=== PATIENT | male | born 1990 | race Two or more races ===

== ENCOUNTER 2019-08-11 09:19 | Emergency (ER) | payer BC ==
[~2019-08-11] VITALS: Ht 180.3 cm; Wt 99.8 kg
[2019-08-11 09:54] VITALS: BP 146/91
== END 2019-08-11 11:36 | disposition home or self-care (01) ==
LOC: ER 09:19
DX: S29.011A Strain of muscle and tendon of front wall of thorax, initial encounter (principal)
CPT/HCPCS: 71101

== ENCOUNTER 2021-03-01 06:32 | Inpatient (IN) | payer BC, MEDICAID ==
[~2021-03-01] VITALS: Ht 177.8 cm; Wt 109.5 kg
[2021-03-01] MEDS ORDERED: SODIUM CHLORIDE 0.9% 1,000 ML IV ONE (07:00)
[2021-03-01] MEDS ORDERED: ONDANSETRON HCL 4 MG/2 ML VIAL IV ONE (07:00)
[2021-03-01] MEDS ORDERED: NALOXONE HCL 1MG/ML 2ML SYRINGE IV ONE (07:15)
[2021-03-01 07:37] LABS: Basophils # (auto) 0 10 ^3/uL (0-0.2); Basophils % (auto) 0.1 % (0.0-2.0); Eosinophils # (auto) 0 10 ^3/uL (0-0.8); Hematocrit 45.6 % (41.0-53.0); Hemoglobin 16.2 g/dL (13.5-17.5); Lymphocytes % (auto) 5.9 % (10.0-50.0); Mean Corpuscular Hgb Conc. 35.5 g/dL (32.0-36.0); Mean Corpuscular Volume 92.9 fL (80.0-100.0); Monocytes # (auto) 0.4 10 ^3/uL (0-1.3); Monocytes % (auto) 2.2 % (0.0-12.0); Neutrophils # (auto) 15.6 10 ^3/uL (1.6-8.6); Neutrophils % (auto) 91.8 % (37.0-80.0); Nucleated Red Blood Cells % 0.6 %; Platelet Count (auto) 386 10^3/uL (140-450); Red Blood Cells 4.91 10^6/uL (4.5-5.90); Red Cell Distribution Width 12.7 % (11.8-14.3)
[2021-03-01 07:54] LABS: Salicylate < 1.7 mg/dL (2.8-20.0)
[2021-03-01 07:55] LABS: Acetaminophen < 2.0 ug/mL (10-30); Albumin 3.9 g/dL (3.4-5.0); Calcium 9.8 mg/dL (8.5-10.1)
[2021-03-01 07:58] LABS: BUN/Creatinine Ratio 13.9; Bilirubin, Total 0.7 mg/dL (0.2-1.0); Total Protein 7.5 g/dL (6.4-8.2)
[2021-03-01] MEDS ORDERED: DexAMETHasone SOD PHOS 10MG/1ML VIAL INJ IV ONE (09:45)
[2021-03-01] MEDS ORDERED: DOXYCYCLINE 100MG/250ML 250 ML IV ONE (09:45)
[2021-03-01 09:52] LABS: Urine Bacteria NONE SEEN /hpf (None Seen); Urine Blood Negative /uL (Negative); Urine Mucus FEW (None Seen); Urine Specific Gravity 1.007 (1.001-1.035); Urine WBC 2 /hpf (0 - 3)
[2021-03-01 10:06] LABS: INR 1.03 (0.9-1.15); Partial Thromboplastin Time 25.1 sec (23.0-31.2)
[2021-03-01 10:17] LABS: Amphetamine Screen, Urine NEGATIVE (NEGATIVE); Barbiturate Scree,Urine NEGATIVE (NEGATIVE); Benzodiazephine Screen, Urine POSITIVE (NEGATIVE); Cannabinoid Screen, Urine NEGATIVE (NEGATIVE); Cocaine Screen, Urine NEGATIVE (NEGATIVE); Opiate Scree,Urine NEGATIVE (NEGATIVE); Phencyclidine Screen, Urine NEGATIVE (NEGATIVE)
[2021-03-01] MEDS ORDERED: IOHEXOL 350 MG/ML 100ML IJ ONE (11:01)
[2021-03-01] MEDS ORDERED: NITROGLYCERIN 0.4 MG SL TAB SL PRN ×3 (12:00→14:15)
[2021-03-01] MEDS ORDERED: MORPHINE SULF INJ 2 MG/ML SYRINGE 1ML IV PRN ×4 (12:00→14:15)
[2021-03-01] MEDS ORDERED: ALUM & MAG HYDROX-SIMETH LIQ(MAALOX) 30 ML PO ONE (14:15)
[2021-03-01] MEDS ORDERED: THIAMINE 100mg/ml INJ (200mg/2ml VIAL) IV ONE (14:15)
[2021-03-01] MEDS ORDERED: MULTIPLE VITAMINS W/ MINERALS TAB PO ONE (14:15)
[2021-03-01] MEDS ORDERED: CLINDAMYCIN 600MG IV 50 ML IV ONE (14:15)
[2021-03-01] MEDS ORDERED: LACTATED RINGER'S 1,000 ML IV ONE (14:15)
[2021-03-01] MEDS ORDERED: FOLIC ACID 1 MG TAB PO ONE (14:15)
[2021-03-01] MEDS ORDERED: ONDANSETRON HCL 4 MG/2 ML VIAL IV PRN (14:15)
[2021-03-01] MEDS ORDERED: LORazepam 2MG/ML-1ML VIAL IV PRN (14:15)
[2021-03-01] MEDS: SODIUM CHLORIDE 0.9% 1,000 ML IV SCH (15:00)
[2021-03-01] MEDS ORDERED: AZTREONAM 1GM INJ 1 GM in D5W 5% 50 ML IV ONE (16:00)
[2021-03-01 17:00] VITALS: BP 106/60
[2021-03-01] MEDS: FUROSEMIDE 20 MG/2 ML VIAL IV SCH (18:12)
[2021-03-01] MEDS: FAMOTIDINE (10MG/ML) 2ML VL IV SCH (21:17)
[2021-03-01] MEDS: CLINDAMYCIN 600MG IV 50 ML IV SCH (21:17)
[2021-03-01 22:00] VITALS: BP 107/64
[2021-03-02] MEDS ORDERED: AZTREONAM 1 GM INJ VIAL ONE (00:56)
[2021-03-02] MEDS: AZTREONAM 1GM INJ 1 GM in D5W 5% 50 ML IV SCH ×3 (01:20→15:41)
[2021-03-02] MEDS: SODIUM CHLORIDE 0.9% 1,000 ML IV SCH ×2 (03:35→17:25)
[2021-03-02 05:15] VITALS: BP 112/57
[2021-03-02] MEDS: CLINDAMYCIN 600MG IV 50 ML IV SCH ×2 (05:45→14:10)
[2021-03-02] MEDS: FUROSEMIDE 20 MG/2 ML VIAL IV SCH ×2 (05:45→18:06)
[2021-03-02 06:48] LABS: Basophils # (auto) 0.2 10 ^3/uL (0-0.2); Basophils % (auto) 2.2 % (0.0-2.0); Eosinophils # (auto) 0 10 ^3/uL (0-0.8); Eosinophils % (auto) 0.5 % (0.0-7.0); Hematocrit 43.2 % (41.0-53.0); Hemoglobin 15.2 g/dL (13.5-17.5); Lymphocytes # (auto) 1.2 10 ^3/uL (0.4-5.4); Lymphocytes % (auto) 12.4 % (10.0-50.0); Mean Corpuscular Hemoglobin 32.7 pg (28.0-32.0); Mean Corpuscular Hgb Conc. 35.2 g/dL (32.0-36.0); Mean Corpuscular Volume 92.7 fL (80.0-100.0); Monocytes # (auto) 0.6 10 ^3/uL (0-1.3); Monocytes % (auto) 5.8 % (0.0-12.0); Neutrophils # (auto) 7.5 10 ^3/uL (1.6-8.6); Neutrophils % (auto) 79.1 % (37.0-80.0); Nucleated Red Blood Cells % 0.1 %; Platelet Count (auto) 342 10^3/uL (140-450); Red Blood Cells 4.67 10^6/uL (4.5-5.90); Red Cell Distribution Width 12.9 % (11.8-14.3); White Blood Cell 9.5 10^3/uL (4.4-10.8)
[2021-03-02 07:05] LABS: Albumin 3.5 g/dL (3.4-5.0); Anion Gap 8 (5-15); Blood Urea Nitrogen 12 mg/dL (7-18); Calcium 9.5 mg/dL (8.5-10.1); Carbon Dioxide 26 mmol/L (21-32); Chloride 108 mmol/L (98-107); Glucose 126 mg/dL (74-106); Magnesium 2.9 mg/dL (1.6-2.6); Potassium 3.6 mmol/L (3.5-5.1); Sodium 142 mmol/L (136-145)
[2021-03-02 07:11] LABS: Alanine Aminotransferase 111 U/L (16-61); Alkaline Phosphatase 76 U/L (45-117); Aspartate Aminotransferase 58 U/L (15-37); BUN/Creatinine Ratio 15.8; Bilirubin, Total 0.7 mg/dL (0.2-1.0); Creatine Kinase IFCC 94 U/L (39-308); GFR African American 156 mL/min; GFR Non-African American 129 mL/min; Phosphorus 3.3 mg/dL (2.5-4.90); Total Protein 6.8 g/dL (6.4-8.2)
[2021-03-02 07:13] LABS: INR 1.03 (0.9-1.15); Partial Thromboplastin Time 25.1 sec (23.0-31.2)
[2021-03-02 07:23] LABS: % Iron Saturation 33.9 % (20-55)
[2021-03-02] MEDS: THIAMINE HCL 100 MG TAB PO SCH (08:25)
[2021-03-02] MEDS: DOCUSATE SOD 100 MG CAP PO SCH (08:25)
[2021-03-02] MEDS: FAMOTIDINE (10MG/ML) 2ML VL IV SCH ×2 (08:26→21:18)
[2021-03-02] MEDS: FOLIC ACID 1 MG TAB PO SCH (08:26)
[2021-03-02] MEDS: ENOXAPARIN SOD 40 MG/0.4 ML SYRINGE SC SCH (08:26)
[2021-03-02 09:00] VITALS: BP 144/88
[2021-03-02] MEDS: MULTIPLE VITAMINS W/ MINERALS TAB PO SCH (10:22)
[2021-03-02] MEDS: LORazepam 0.5 MG TAB PO PRN ×2 (11:00→22:43)
[2021-03-02 13:00] VITALS: BP 145/77
[2021-03-02 13:28] LABS: Hepatitis B Surface Antigen Negative (Negative); Hepatitis C Antibody Negative (Negative)
[2021-03-02 17:00] VITALS: BP 146/73
[2021-03-02] MEDS: HYDROcodone-ACET 5/325MG TAB PO PRN (21:18)
[2021-03-02 22:00] VITALS: BP 146/84
[2021-03-03] MEDS: HYDROcodone-ACET 5/325MG TAB PO PRN (03:20)
[2021-03-03 05:00] VITALS: BP 137/82
[2021-03-03 08:00] VITALS: BP 144/103
[2021-03-03 09:00] VITALS: BP 144/103
[2021-03-03] MEDS: FAMOTIDINE (10MG/ML) 2ML VL IV SCH (10:00)
[2021-03-03] MEDS: FOLIC ACID 1 MG TAB PO SCH (10:00)
[2021-03-03] MEDS ORDERED: levoFLOXacin 250 MG TAB PO SCH (10:00)
[2021-03-03] MEDS: DOCUSATE SOD 100 MG CAP PO SCH (10:01)
[2021-03-03] MEDS: ENOXAPARIN SOD 40 MG/0.4 ML SYRINGE SC SCH (10:02)
[2021-03-03] MEDS: MULTIPLE VITAMINS W/ MINERALS TAB PO SCH (10:04)
[2021-03-03] MEDS: THIAMINE HCL 100 MG TAB PO SCH (10:05)
[2021-03-03 13:00] VITALS: BP 145/84
== END 2021-03-03 16:23 | disposition home or self-care (01) | DRG 812 ==
LOC: EDBD 06:32 → ER 06:32 → TELE 12:01 → TELE-WESTW 16:25
PROVIDERS: ADMIT Hospitalist; ATTEND Internal Medicine Nephrology
DX: T40.2X1A Poisoning by other opioids, accidental (unintentional), initial encounter (principal); J96.01 Acute respiratory failure with hypoxia; J15.6 Pneumonia due to other Gram-negative bacteria; N17.0 Acute kidney failure with tubular necrosis; G92 Toxic encephalopathy; E88.81 Metabolic syndrome and other insulin resistance; E86.0 Dehydration; E66.01 Morbid (severe) obesity due to excess calories; K76.0 Fatty (change of) liver, not elsewhere classified; Z20.822 Contact with and (suspected) exposure to COVID-19; K21.9 Gastro-esophageal reflux disease without esophagitis; K29.70 Gastritis, unspecified, without bleeding; G89.4 Chronic pain syndrome; R73.9 Hyperglycemia, unspecified; B17.9 Acute viral hepatitis, unspecified; E66.9 Obesity, unspecified; E78.5 Hyperlipidemia, unspecified; F11.20 Opioid dependence, uncomplicated; F13.10 Sedative, hypnotic or anxiolytic abuse, uncomplicated; I10 Essential (primary) hypertension; R55 Syncope and collapse; M25.512 Pain in left shoulder; F19.10 Other psychoactive substance abuse, uncomplicated; Z68.34 Body mass index [BMI] 34.0-34.9, adult; Z88.0 Allergy status to penicillin; Z86.16 Personal history of COVID-19; Z87.01 Personal history of pneumonia (recurrent); Y92.89 Other specified places as the place of occurrence of the external cause
CPT/HCPCS: 36415; 36600; 70450; 71045; 71275; 76705; 80053; 80307; 80329; 81001; 82306; 82550; 82728; 82805; 83036; 83540; 83550; 83735; 83880; 84100; 84443; 84484; 85025; 85379; 85610; 85730; 86803; 87040; 87340; 87426; 93005; 93306; 96361; 96365; 96375; G0378; J1100; J2405; J3490; J7060

== ENCOUNTER 2022-04-26 11:57 | Inpatient (IN) | payer OTHER, MEDICAID ==
[~2022-04-26] VITALS: Ht 180.3 cm; Wt 95.6 kg
[2022-04-26] MEDS ORDERED: SODIUM CHLORIDE 0.9% 2,000 ML IV ONE (12:30)
[2022-04-26 13:55] LABS: Hematocrit 52.6 % (41.0-53.0); Hemoglobin 17.3 g/dL (13.5-17.5); Mean Corpuscular Hemoglobin 32.3 pg (28.0-32.0); Mean Corpuscular Volume 97.8 fL (80.0-100.0); Red Blood Cells 5.37 10^6/uL (4.5-5.90); Red Cell Distribution Width 12.9 % (11.8-14.3); White Blood Cell 18.5 10^3/uL (4.4-10.8)
[2022-04-26 13:57] LABS: Basophils % (manual) 0 (0.0-2.0); Blast Cells 0; Metamyelocytes % 0; Myelocytes % 0; Promyelocytes % 0; Reactive Lymphocytes 0
[2022-04-26] MEDS ORDERED: LORazepam 2MG/ML-1ML VIAL IV ONE (14:00)
[2022-04-26 14:12] LABS: Band Neutrophils % (manual) 4; Eosinophils % (manual) 1 (0-7); Lymphocytes % (manual) 1 (10.0-50.0); Monocytes % (manual) 2 (0-12)
[2022-04-26] MEDS ORDERED: SODIUM CHLORIDE 0.9% 1,000 ML IV ONE ×2 (14:15)
[2022-04-26 14:42] LABS: Urine Bacteria NONE SEEN /hpf (None Seen); Urine Blood TRACE /uL (Negative); Urine Hyaline Cast FEW /lpf (0 - 2); Urine Mucus FEW (None Seen); Urine Specific Gravity 1.026 (1.001-1.035); Urine WBC 2 /hpf (0 - 3)
[2022-04-26 14:49] LABS: Amphetamine Screen, Urine NEGATIVE (NEGATIVE); Barbiturate Scree,Urine NEGATIVE (NEGATIVE); Benzodiazephine Screen, Urine NEGATIVE (NEGATIVE); Cannabinoid Screen, Urine NEGATIVE (NEGATIVE); Cocaine Screen, Urine NEGATIVE (NEGATIVE); Opiate Scree,Urine NEGATIVE (NEGATIVE); Phencyclidine Screen, Urine NEGATIVE (NEGATIVE)
[2022-04-26] MEDS ORDERED: ONDANSETRON HCL 4 MG/2 ML VIAL IV ONE (15:45)
[2022-04-26 17:06] LABS: Chloride 106 mmol/L (98-107); Sodium 136 mmol/L (136-145)
[2022-04-26 17:08] LABS: Alanine Aminotransferase 148 U/L (16-61); Alkaline Phosphatase 116 U/L (45-117); Anion Gap 24 (5-15); Aspartate Aminotransferase 60 U/L (15-37); BUN/Creatinine Ratio 15.9; Bilirubin, Total 0.7 mg/dL (0.2-1.0); Blood Urea Nitrogen 25 mg/dL (7-18); GFR African American 67 mL/min; GFR Non-African American 55 mL/min
[2022-04-26 17:09] LABS: Albumin 3.9 g/dL (3.4-5.0); Potassium 5.9 mmol/L (3.5-5.1)
[2022-04-26 17:10] LABS: Blood Alcohol < 3.0 mg/dL (0-5); Carbon Dioxide 6 mmol/L (21-32); Glucose 533 mg/dL (74-106)
[2022-04-26] MEDS ORDERED: DEXTROSE (50%) 50ML SYRG IV PRN (17:30)
[2022-04-26] MEDS ORDERED: INSULIN LANTUS (GLARGINE) 1 /0.01ml (100units/ml) SC ONE (17:30)
[2022-04-26] MEDS: SODIUM CHLORIDE 0.9% 1,000 ML IV SCH ×3 (17:46→22:49)
[2022-04-26] MEDS: ACCU-CHEK COMFORT CURVE STRIP VI SCH ×4 (18:09→22:36)
[2022-04-26] MEDS: InsuLIN R (HUMAN) 100 UNITS in SODIUM CHL 0.9% 99 ML IV SCH (18:16)
[2022-04-26] MEDS ORDERED: ONDANSETRON HCL 4 MG/2 ML VIAL IV PRN (21:30)
[2022-04-26] MEDS ORDERED: hydrALAZINE HCL 20 MG/ML VL IV PRN (21:30)
[2022-04-26] MEDS ORDERED: levoFLOXacin 500MG 100 ML IV ONE (21:30)
[2022-04-26] MEDS ORDERED: SODIUM CHLORIDE 0.9% 1,000 ML IV SCH ×2 (21:30)
[2022-04-26] MEDS ORDERED: DOCUSATE SOD 100 MG CAP PO PRN (21:30)
[2022-04-26 21:43] LABS: Basophils # (auto) 0 10 ^3/uL (0-0.2); Basophils % (auto) 0.1 % (0.0-2.0); Eosinophils # (auto) 0 10 ^3/uL (0-0.8); Hematocrit 51.2 % (41.0-53.0); Hemoglobin 17.2 g/dL (13.5-17.5); Lymphocytes # (auto) 1.2 10 ^3/uL (0.4-5.4); Lymphocytes % (auto) 5.4 % (10.0-50.0); Mean Corpuscular Hemoglobin 32.8 pg (28.0-32.0); Mean Corpuscular Hgb Conc. 33.6 g/dL (32.0-36.0); Mean Corpuscular Volume 97.5 fL (80.0-100.0); Monocytes # (auto) 1.3 10 ^3/uL (0-1.3); Monocytes % (auto) 5.8 % (0.0-12.0); Neutrophils # (auto) 19.6 10 ^3/uL (1.6-8.6); Neutrophils % (auto) 88.7 % (37.0-80.0); Nucleated Red Blood Cells % 0.1 %; Red Blood Cells 5.25 10^6/uL (4.5-5.90); Red Cell Distribution Width 12.7 % (11.8-14.3); White Blood Cell 22.1 10^3/uL (4.4-10.8)
[2022-04-26] MEDS: METOPROLOL TARTRATE 25 MG TAB PO SCH (22:37)
[2022-04-26] MEDS: HYDROcodone-ACET 5/325MG TAB PO PRN (22:38)
[2022-04-26] MEDS: HEPARIN SODIUM (PORCINE) 5000 UNITS/ML 1ML VIAL SC SCH (22:48)
[2022-04-26 22:49] LABS: Alanine Aminotransferase 138 U/L (16-61); Alkaline Phosphatase 111 U/L (45-117); Anion Gap 20 (5-15); Aspartate Aminotransferase 56 U/L (15-37); BUN/Creatinine Ratio 16.8; Bilirubin, Total 0.6 mg/dL (0.2-1.0); Blood Urea Nitrogen 24 mg/dL (7-18); Calcium 8.1 mg/dL (8.5-10.1); Carbon Dioxide 5 mmol/L (21-32); Chloride 112 mmol/L (98-107); GFR African American 75 mL/min; GFR Non-African American 62 mL/min; Glucose 345 mg/dL (74-106); Phosphorus 2.5 mg/dL (2.5-4.90); Potassium 5.5 mmol/L (3.5-5.1); Sodium 137 mmol/L (136-145)
[2022-04-26 22:50] LABS: Albumin 3.6 g/dL (3.4-5.0); Magnesium 3.1 mg/dL (1.6-2.6); Total Protein 7.8 g/dL (6.4-8.2)
[2022-04-26] MEDS ORDERED: MORPHINE SULFATE INJ 2 MG/ml SYRG IV PRN (23:30)
[2022-04-26] MEDS ORDERED: NITROGLYCERIN 0.4 MG SL TAB SL PRN (23:30)
[2022-04-27] MEDS: ACCU-CHEK COMFORT CURVE STRIP VI SCH ×16 (00:08→23:45)
[2022-04-27] MEDS: SODIUM CHLORIDE 0.9% 1,000 ML IV SCH (06:10)
[2022-04-27 08:21] LABS: Basophils # (auto) 0.1 10 ^3/uL (0-0.2); Basophils % (auto) 0.5 % (0.0-2.0); Eosinophils # (auto) 0 10 ^3/uL (0-0.8); Eosinophils % (auto) 0.1 % (0.0-7.0); Hemoglobin 14.9 g/dL (13.5-17.5); Lymphocytes # (auto) 1.1 10 ^3/uL (0.4-5.4); Lymphocytes % (auto) 8.6 % (10.0-50.0); Mean Corpuscular Hemoglobin 32.6 pg (28.0-32.0); Mean Corpuscular Hgb Conc. 33.9 g/dL (32.0-36.0); Mean Corpuscular Volume 96.3 fL (80.0-100.0); Monocytes # (auto) 0.9 10 ^3/uL (0-1.3); Neutrophils # (auto) 10.9 10 ^3/uL (1.6-8.6); Neutrophils % (auto) 83.8 % (37.0-80.0); Red Blood Cells 4.57 10^6/uL (4.5-5.90); Red Cell Distribution Width 12.7 % (11.8-14.3)
[2022-04-27] MEDS: HYDROcodone-ACET 5/325MG TAB PO PRN ×2 (08:33→16:27)
[2022-04-27 08:38] LABS: Albumin 3.1 g/dL (3.4-5.0); Calcium 8.2 mg/dL (8.5-10.1); Potassium 4.2 mmol/L (3.5-5.1)
[2022-04-27 08:52] LABS: BUN/Creatinine Ratio 14.5; Bilirubin, Total 0.7 mg/dL (0.2-1.0); Total Protein 6.3 g/dL (6.4-8.2)
[2022-04-27] MEDS: amLODIPine BESYLATE 5 MG TAB PO SCH (10:00)
[2022-04-27] MEDS: METOPROLOL TARTRATE 25 MG TAB PO SCH ×2 (10:00→23:44)
[2022-04-27] MEDS: HEPARIN SODIUM (PORCINE) 5000 UNITS/ML 1ML VIAL SC SCH (10:21)
[2022-04-27] MEDS: levoFLOXacin 500MG 100 ML IV SCH (10:22)
[2022-04-27] MEDS: INSULIN LANTUS (GLARGINE) 1 /0.01ml (100units/ml) SC SCH (10:36)
[2022-04-27] MEDS: SODIUM BICARBONATE 50ML VIAL 50 ML in SOD CHL 0.45% 1,000 ML IV SCH (11:08)
[2022-04-27 15:41] LABS: BUN/Creatinine Ratio 15.2; Calcium 8.5 mg/dL (8.5-10.1); Magnesium 2.7 mg/dL (1.6-2.6); Potassium 3.7 mmol/L (3.5-5.1)
[2022-04-27] MEDS: InsuLIN R (HUMAN) 100 UNITS in SODIUM CHL 0.9% 99 ML IV SCH ×2 (17:29→21:30)
[2022-04-27] MEDS ORDERED: ERGOCALCIFEROL 50,000 UNIT(1.25MG) CAP PO SCH (19:15)
[2022-04-27] MEDS ORDERED: POTASSIUM PHOSPHATE 26.4 MEQ in SODIUM CHL 0.9% 100 ML IV ONE (19:15)
[2022-04-28] MEDS: HEPARIN SODIUM (PORCINE) 5000 UNITS/ML 1ML VIAL SC SCH ×3 (00:21→22:48)
[2022-04-28] MEDS: ACCU-CHEK COMFORT CURVE STRIP VI SCH ×11 (00:28→22:00)
[2022-04-28] MEDS: HYDROcodone-ACET 5/325MG TAB PO PRN ×3 (00:47→23:57)
[2022-04-28] MEDS ORDERED: InsuLIN R (HUMAN) 100 UNITS in SODIUM CHL 0.9% 99 ML IV SCH (04:30)
[2022-04-28 06:02] LABS: Calcium 7.8 mg/dL (8.5-10.1); Magnesium 2.8 mg/dL (1.6-2.6); Potassium 5.4 mmol/L (3.5-5.1)
[2022-04-28 06:05] LABS: BUN/Creatinine Ratio 15.1; Phosphorus 6.4 mg/dL (2.5-4.90)
[2022-04-28 06:08] LABS: Albumin 2.6 g/dL (3.4-5.0); Calcium 7.7 mg/dL (8.5-10.1); Potassium 5.4 mmol/L (3.5-5.1)
[2022-04-28 06:11] LABS: BUN/Creatinine Ratio 15.3; Bilirubin, Total 0.5 mg/dL (0.2-1.0); Total Protein 5.4 g/dL (6.4-8.2)
[2022-04-28] MEDS: ACETAMINOPHEN 325 MG TAB PO PRN ×2 (07:50→18:33)
[2022-04-28 08:46] LABS: Urine Bacteria FEW /hpf (None Seen); Urine Blood Negative /uL (Negative); Urine Specific Gravity 1.018 (1.001-1.035); Urine WBC 1 /hpf (0 - 3)
[2022-04-28 08:51] LABS: Basophils # (auto) 0.1 10 ^3/uL (0-0.2); Basophils % (auto) 0.9 % (0.0-2.0); Eosinophils # (auto) 0 10 ^3/uL (0-0.8); Eosinophils % (auto) 0.3 % (0.0-7.0); Hematocrit 37.4 % (41.0-53.0); Hemoglobin 13.3 g/dL (13.5-17.5); Lymphocytes % (auto) 18.5 % (10.0-50.0); Mean Corpuscular Hemoglobin 32.7 pg (28.0-32.0); Mean Corpuscular Hgb Conc. 35.7 g/dL (32.0-36.0); Mean Corpuscular Volume 91.6 fL (80.0-100.0); Monocytes # (auto) 0.4 10 ^3/uL (0-1.3); Monocytes % (auto) 7.4 % (0.0-12.0); Neutrophils % (auto) 72.9 % (37.0-80.0); Nucleated Red Blood Cells % 0.2 %; Red Blood Cells 4.08 10^6/uL (4.5-5.90); Red Cell Distribution Width 12.5 % (11.8-14.3); White Blood Cell 5.5 10^3/uL (4.4-10.8)
[2022-04-28] MEDS: SODIUM BICARBONATE 50ML VIAL 50 ML in SOD CHL 0.45% 1,000 ML IV SCH (09:59)
[2022-04-28] MEDS: METOPROLOL TARTRATE 25 MG TAB PO SCH ×2 (10:25→22:41)
[2022-04-28] MEDS: amLODIPine BESYLATE 5 MG TAB PO SCH (10:26)
[2022-04-28] MEDS: INSULIN LANTUS (GLARGINE) 1 /0.01ml (100units/ml) SC SCH (10:26)
[2022-04-28] MEDS: levoFLOXacin 500MG 100 ML IV SCH (10:40)
[2022-04-28] MEDS ORDERED: DEXTROSE (50%) 50ML SYRG IV PRN (11:15)
[2022-04-28] MEDS: InsuLIN REG 1unit/0.01ml Soln (100units/ml) SC SCH ×2 (13:02→17:00)
[2022-04-28 14:45] VITALS: BP 116/68
[2022-04-28 16:30] LABS: Calcium 8.7 mg/dL (8.5-10.1); Potassium 3.9 mmol/L (3.5-5.1)
[2022-04-28 17:00] VITALS: BP 105/66
[2022-04-28 20:00] VITALS: BP 119/71
[2022-04-28 22:00] VITALS: BP 119/71
[2022-04-28] MEDS ORDERED: InsuLIN REG 1unit/0.01ml Soln (100units/ml) SC SCH (22:00)
[2022-04-29] MEDS: SODIUM BICARBONATE 50ML VIAL 50 ML in SOD CHL 0.45% 1,000 ML IV SCH (04:34)
[2022-04-29 05:37] VITALS: BP 120/74
[2022-04-29 06:12] LABS: Basophils # (auto) 0 10 ^3/uL (0-0.2); Basophils % (auto) 0.5 % (0.0-2.0); Eosinophils # (auto) 0 10 ^3/uL (0-0.8); Eosinophils % (auto) 0.3 % (0.0-7.0); Hematocrit 39.2 % (41.0-53.0); Hemoglobin 14.3 g/dL (13.5-17.5); Lymphocytes # (auto) 1.5 10 ^3/uL (0.4-5.4); Lymphocytes % (auto) 32.5 % (10.0-50.0); Mean Corpuscular Hemoglobin 32.9 pg (28.0-32.0); Mean Corpuscular Hgb Conc. 36.4 g/dL (32.0-36.0); Mean Corpuscular Volume 90.5 fL (80.0-100.0); Monocytes # (auto) 0.4 10 ^3/uL (0-1.3); Monocytes % (auto) 8.5 % (0.0-12.0); Neutrophils # (auto) 2.7 10 ^3/uL (1.6-8.6); Neutrophils % (auto) 58.2 % (37.0-80.0); Nucleated Red Blood Cells % 0.2 %; Red Blood Cells 4.34 10^6/uL (4.5-5.90); Red Cell Distribution Width 12.7 % (11.8-14.3); White Blood Cell 4.7 10^3/uL (4.4-10.8)
[2022-04-29 06:19] LABS: BUN/Creatinine Ratio 10.3; Calcium 8.7 mg/dL (8.5-10.1); Magnesium 2.7 mg/dL (1.6-2.6); Phosphorus 1.8 mg/dL (2.5-4.90)
[2022-04-29] MEDS: ACCU-CHEK COMFORT CURVE STRIP VI SCH ×3 (06:22→18:06)
[2022-04-29] MEDS: InsuLIN REG 1unit/0.01ml Soln (100units/ml) SC SCH ×3 (06:24→18:08)
[2022-04-29 06:47] LABS: Potassium 2.7 mmol/L (3.5-5.1)
[2022-04-29 08:00] VITALS: BP 114/75
[2022-04-29 09:00] VITALS: BP 112/77
[2022-04-29] MEDS: METOPROLOL TARTRATE 25 MG TAB PO SCH (09:04)
[2022-04-29] MEDS: levoFLOXacin 500MG 100 ML IV SCH (09:04)
[2022-04-29] MEDS: amLODIPine BESYLATE 5 MG TAB PO SCH (09:05)
[2022-04-29] MEDS: HEPARIN SODIUM (PORCINE) 5000 UNITS/ML 1ML VIAL SC SCH (09:06)
[2022-04-29] MEDS: INSULIN LANTUS (GLARGINE) 1 /0.01ml (100units/ml) SC SCH (09:06)
[2022-04-29] MEDS: HYDROcodone-ACET 5/325MG TAB PO PRN (11:35)
[2022-04-29] MEDS ORDERED: POTASSIUM PHOSPHATE 26.4 MEQ in SODIUM CHL 0.9% 100 ML IV ONE (12:45)
[2022-04-29] MEDS ORDERED: POTASSIUM CHL 20 Meq TABLET PO ONE (12:45)
[2022-04-29 13:00] VITALS: BP 136/69
[2022-04-29] MEDS ORDERED: LANC-347 XX (13:43)
[2022-04-29] MEDS ORDERED: BLOO-89 XX (13:43)
[2022-04-29] MEDS ORDERED: INSU1INJ26 SC (13:43)
[2022-04-29] MEDS ORDERED: ERGO1CAP23 PO (13:43)
[2022-04-29] MEDS ORDERED: BLOO-156 XX (13:43)
[2022-04-29] MEDS ORDERED: LISI-716 PO (13:43)
[2022-04-29] MEDS ORDERED: ATOR20TA PO (13:43)
[2022-04-29] MEDS ORDERED: BLOO1KIT60 XX (13:43)
[2022-04-29 14:21] VITALS: BP 112/77
[2022-04-29 17:00] VITALS: BP 119/75
[2022-04-29] MEDS: ACETAMINOPHEN 325 MG TAB PO PRN (19:35)
== END 2022-04-29 20:42 | disposition home or self-care (01) | DRG 638 ==
LOC: EDBD 11:57 → ER 11:57 → TELE 23:26 → TELE-EAST 04-28 14:43
PROVIDERS: ADMIT Nurse Practitioner Family; ATTEND Internal Medicine
DX: E11.10 Type 2 diabetes mellitus with ketoacidosis without coma (principal); R65.10 Systemic inflammatory response syndrome (SIRS) of non-infectious origin without acute organ dysfunction; D72.829 Elevated white blood cell count, unspecified; E87.5 Hyperkalemia; E55.9 Vitamin D deficiency, unspecified; E78.5 Hyperlipidemia, unspecified; I10 Essential (primary) hypertension; Z20.822 Contact with and (suspected) exposure to COVID-19; Z83.3 Family history of diabetes mellitus
CPT/HCPCS: 36415; 36600; 80048; 80053; 80061; 80307; 80320; 81001; 82010; 82306; 82805; 82962; 83036; 83735; 83930; 84100; 84443; 85007; 85025; 85027; 87040; 96361; 96374; 96375; 99291; G0378; J1815; J1956; J2405

== ENCOUNTER 2023-09-01 17:15 | Emergency (ER) | payer OTHER, MEDICAID ==
[~2023-09-01] VITALS: Ht 177.8 cm; Wt 89.3 kg
[~2023-09-01 17:15] MED LIST: ATOR20TA PO; BLOO-156 XX; BLOO-89 XX; BLOO1KIT60 XX; ERGO1CAP23 PO; INSU1INJ26 SC; LANC-347 XX; LISI10TA34 PO
[2023-09-01 17:43] VITALS: PULSE 84; RESP 16; O2SAT 97
[2023-09-01] MEDS ORDERED: KETAMINE 50mg/ML 10ml Vial (500mg/10ml) IV ONE (18:15)
[2023-09-01] MEDS ORDERED: PROPOFOL 10 MG/ML 20 ML IV ONE (18:15)
[2023-09-01] MEDS ORDERED: SODIUM CHLORIDE 0.9% 1,000 ML IV ONE (18:30)
[2023-09-01] MEDS ORDERED: NAP500T PO (19:14)
[2023-09-01 19:26] VITALS: BP 141/85; PULSE 77; RESP 19; TEMP 98.9; O2SAT 95
== END 2023-09-01 19:38 | disposition home or self-care (01) ==
LOC: ER 17:15
DX: S43.005A Unspecified dislocation of left shoulder joint, initial encounter (principal); Z88.0 Allergy status to penicillin; X58.XXXA Exposure to other specified factors, initial encounter; Y93.89 Activity, other specified; Y92.89 Other specified places as the place of occurrence of the external cause; Y99.8 Other external cause status
CPT/HCPCS: 23650; 73020; 73030; 96360; 99285; J2704; J7030

== ENCOUNTER 2024-10-17 21:02 | Emergency (ER) | payer OTHER, MEDICAID ==
[~2024-10-17] VITALS: Ht 180.3 cm; Wt 81.9 kg
[~2024-10-17 21:02] MED LIST changes: +NAP500T PO
--- NOTE | 2024-10-17 21:29 | ED.PDOC ---
GI ASSESSMENT HPI Comments 34-year-old male who came to ER for abdominal pain. Patient denies any medical problems, denies any history of abdominal surgeries. States for the past 8 days he has been having intermittent episodes of right lower quadrant abdominal pain also nausea and vomiting. Last bowel movement was this morning. Denies any urinary symptoms. Chief Complaint: Abdominal pain Time Seen by MD: 21:29 Primary Care Provider: DENIES Reviewed Notes: Nurses Notes Allergies: Coded Allergies: Penicillins (Verified Allergy, Unknown, 08/11/19) Home Meds Active Scripts Naproxen (NAPROSYN TABLET) 500 Mg Tb, 1 TAB PO BID PRN, #30 TAB 1 Refill Prov:ALIRIO PICKARD MD 09/01/23 Lancets (Freestyle Lancets) Lancets Mis, APPLIC XX ACHS, #90 Prov:ALEKSEY PARK MD 04/29/22 Blood Glucose Monitoring Suppl (D-Care Glucometer Kit/Glu W/Device) 1 Kit Kit, KIT XX ACHS, #90 Prov:ALEKSEY PARK MD 04/29/22 Blood Pressure Monitoring (BLOOD PRESSURE MONITOR/BA) Monitor Mis, APPLIC XX ACHS, #1 Prov:ALEKSEY PARK MD 04/29/22 Isopropyl Alcohol (Advocate Alcohol Prep Pad) 70 % Pad, % XX AC, #90 Prov:ALEKSEY PARK MD 04/29/22 Insulin Aspart Protamine & Asp (Insulin Aspart Protamine/ (70-30) 100 Unit/ml) 1 Inj Inj, 15 INJ SC BIDAC for 30 Days, #30 INJ Prov:ALEKSEY PARK MD 04/29/22 Atorvastatin Calcium (Lipitor) 20 Mg Tab, 1 TAB PO HS for 30 Days, #30 TAB 1 Refill Prov:ALEKSEY PARK MD 04/29/22 Lisinopril (Lisinopril) 10 Mg Tab, 10 MG PO QAM for 30 Days, #30 TAB Prov:ALEKSEY PARK MD 04/29/22 Ergocalciferol (VITAMIN D 81141 UNIT) 50,000 [place], [address] UNIT PO Q7D for 10 Days, #10 CAP Prov:ALEKSEY PARK MD 04/29/22 Information Source: Patient Mode of Arrival: Ambulatory Timing: Days Duration: Intermittent Prehospital treatment: None Quality: Aching Vomitus: Watery Stool: Normal Severity: Moderate Recent: None Recent Hx of: None Pain Location: RLQ Modifying Factors: Nothing Associated sign and symptoms: Nausea, Vomiting, Abdominal Pain Past Medical History PAST MEDICAL HISTORY: Denies Surgical History: Denies all surgeries Family History Family History: Reviewed,noncontributory to illness, Family hx of DM Social History Smoker: Non-Smoker Alcohol: Denies ETOH Use Drugs: Denies Drug Use Lives In: Home Constitutional: denies: chills, diaphoresis, fatigue, fever, malaise, sweats, weakness, others EENTM: denies: blurred vision, double vision, ear bleeding, ear discharge, ear drainage, ear pain, ear ringing, eye pain, eye redness, hearing loss, mouth pain, mouth swelling, nasal discharge, nose bleeding, nose congestion, nose pain, photophobia, tearing, throat pain, throat swelling, voice changes, others Respiratory: denies: cough, hemoptysis, orthopnea, SOB at rest, shortness of breath, SOB with excertion, stridor, wheezing, others Cardiovascular: denies: chest pain, dizzy spells, diaphoresis, Dyspnea on exertion, edema, irregular heart beat, left arm pain, lightheadedness, palpitations, PND, syncope, others Gastrointestinal: reports: abdominal pain, nausea, vomiting; denies: abdomen distended, blood streaked bowels, constipated, diarrhea, dysphagia, difficulty swallowing, hematemesis, melena, poor appetite, poor fluid intake, rectal bleeding, rectal pain, others Genitourinary: denies: burning, dysuria, flank pain, frequency, hematuria, incontinence, penile discharge, penile sore, pain, testicle pain, testicle swelling, urgency, others Neurological: denies: dizziness, fainting, headache, left sided numbness, left sided weakness, numbness, paresthesia, pre-existing deficit, right sided numbnes s, right sided weakness, seizure, speech problems, tingling, tremors, weakness, others Musculoskeletal: denies: back pain, gout, joint pain, joint swelling, muscle pain, muscle stiffness, neck pain, others Integumetry: denies: bruises, change in color, change in hair/nails, dryness, laceration, lesions, lumps, rash, wounds, others Allergic/Immunocompromised: denies: Difficulty Healing, Frequent Infections, Hives, Itching, others Hematologic/Lymphatic: denies: anemia, blood clots, easy bleeding, easy bruising, swollen glands, others Endocrine: denies: excessive hunger, excessive sweating, excessive thirst, excessive urination, flushing, intolerance to cold, intolerance to heat, unexplained weight gain, unexplained weight loss, others Psychiatric: denies: anxiety, bipolar disorder, depression, hopeless, panic disorder, schizophrenia, sleepless, suicidal, others Physical Exam General Appearance: Mild Distress, Normal HEENT: Normal ENT Inspection, Pharynx Normal, TMs Normal Neck: Full Range of Motion, Non-Tender, Normal, Normal Inspection Respiratory: Chest Non-Tender, Lungs Clear, No Accessory Muscle Use, No Respiratory Distress, Normal Breath Sounds Cardiovascular: No Edema, No JVD, No Murmur, No Gallop, Normal Peripheral Pulses, Regular Rate/Rhythm Breast Exam: Deferred Gastrointestinal: No Organomegaly, Non Tender, No Pulsatile Mass, Normal Bowel Sounds, Soft Genitalia: Deferred Pelvic: Deferred Rectal: Deferred Extremities: No calf tenderness, Normal capillary refill, Normal inspection, Normal range of motion, Non-tender, No pedal edema Musculoskeletal : Apperance: Normal Neurologic: Alert, hand spring former II-XII nml as Tested, No Motor Deficits, Normal Affect, Normal Mood, No Sensory Deficits Cerebellar Function: Normal Reflexes: Normal Skin: Dry, Normal Color, Warm Lymphatic: No Adenopathy Was a procedure done? Was a procedure done?: No GI differential Dx Differential Diagnosis: Appendicitis, Cholecystitis, Constipation, Diverticular disease, Gastritis/PUD, Gastroenteritis, Pancreatitis, UTI, Urolithiasis X-Ray, Labs, Meds, VS Vital Signs Date Time Temp Pulse Resp B/P (MAP) Pulse Ox O2 Delivery O2 Flow Rate FiO2 10/17/24 21:35 100.2 71 16 134/67 (89) 98 Lab Test 10/17/24 21:38 10/17/24 21:31 Range/Units White Blood Count 14.2 H 4.4-10.8 10^3/uL Red Blood Count 4.65 4.5-5.90 10^6/uL Hemoglobin 14.0 13.5-17.5 g/dL Hematocrit 40.9 L 41.0-53.0 % Mean Corpuscular Volume 87.9 80.0-100.0 fL Mean Corpuscular Hemoglobin 30.1 28.0-32.0 pg Mean Corpuscular Hemoglobin Concent 34.3 32.0-36.0 g/dL Red Cell Distribution Width 12.8 11.8-14.3 % Platelet Count 355 140-450 10^3/uL Mean Platelet Volume 6.4 L 6.9-10.8 fL Neutrophils (%) (Auto) 84.2 H 37.0-80.0 % Lymphocytes (%) (Auto) 6.6 L 10.0-50.0 % Monocytes (%) (Auto) 9.1 0.0-12.0 % Eosinophils (%) (Auto) 0.0 0.0-7.0 % Basophils (%) (Auto) 0.1 0.0-2.0 % Neutrophils # (Auto) 12.0 H 1.6-8.6 10 ^3/uL Lymphocytes # (Auto) 0.9 0.4-5.4 10 ^3/uL Monocytes # (Auto) 1.3 0-1.3 10 ^3/uL Eosinophils # (Auto) 0 0-0.8 10 ^3/uL Basophils # (Auto) 0 0-0.2 10 ^3/uL Nucleated Red Blood Cells 0.0 % Sodium Level 136 136-145 mmol/L Potassium Level 3.9 3.5-5.1 mmol/L Chloride Level 101 98-107 mmol/L Carbon Dioxide Level 29 20-31 mmol/L Anion Gap 6 5-15 Blood Urea Nitrogen 8 L 9-23 mg/dL Creatinine 0.91 0.700-1.30 mg/dL Glomerular Filtration Rate Calc 115 >90 mL/min BUN/Creatinine Ratio 8.8 L 10.0-20.0 Serum Glucose 149 H 74-106 mg/dL Calcium Level 10.2 8.7-10.4 mg/dL Total Bilirubin 0.5 0.2-1.0 mg/dL Aspartate Amino Transferase (AST) 23 13-40 U/L Alanine Aminotransferase (ALT) 32 7-40 U/L Alkaline Phosphatase 135 H 46-116 U/L Total Protein 6.7 5.7-8.2 g/dL Albumin 4.2 3.2-4.8 g/dL Lipase 37 12-53 U/L Urine Color Yellow Yellow Urine Clarity Clear Clear Urine pH 6.5 5.0-9.0 Urine Specific [place] 1.018 1.001-1.035 Urine Protein Trace H Negative Urine Ketones Negative Negative Urine Blood Negative Negative /uL Urine Nitrite Negative Negative Urine Bilirubin Negative Negative Urine Urobilinogen 4 H Negative mg/dL Urine Leukocyte Esterase Negative Negative /uL Urine RBC 1 0 - 3 /hpf Urine WBC 1 0 - 3 /hpf Urine Squamous Epithelial Cells None seen <5 /hpf Urine Bacteria None seen None Seen /hpf Urine Glucose Normal Normal mg/dL Time of 1ST Reevaluation: 21:27 Reevaluation 1ST: Unchanged Time of 2ND Reevaluation: 22:33 Reevaluation 2ND: Improved Patient Education/Counseling: Diagnosis, Treatment Family Education/Counseling: No Family Present Departure 1 Departure Time of Disposition: 22:30 Impression: Primary Impression: Abdominal pain Disposition: 01 HOME / SELF CARE / HOMELESS Condition: Stable Discharged With: Self Critical Care Note Critical Care Time?: No Stability Stability form required: No Heart Score Heart Score: Heart Score Response (Comments) Value History N/A 0 EKG N/A 0 Age N/A 0 Risk Factors N/A 0 Troponin N/A 0 Total 0 I personally scribed for JOCELYNE VAZQUEZ MD ([email or web address]) on 10/17/24 at 21:29. Electronically submitted by Gerald Nevarez ([email or web address]). JOCELYNE VAZQUEZ MD Oct 17, 2024 21:29
[2024-10-17 21:34] LABS: Urine Bacteria None Seen /hpf (None Seen)
[2024-10-17 21:35] VITALS: BP 134/67; PULSE 71; RESP 16; O2SAT 98
[2024-10-17 21:59] LABS: Basophils # (auto) 0 10 ^3/uL (0-0.2); Basophils % (auto) 0.1 % (0.0-2.0); Eosinophils # (auto) 0 10 ^3/uL (0-0.8); Hematocrit 40.9 % (41.0-53.0); Lymphocytes # (auto) 0.9 10 ^3/uL (0.4-5.4); Lymphocytes % (auto) 6.6 % (10.0-50.0); Mean Corpuscular Hemoglobin 30.1 pg (28.0-32.0); Mean Corpuscular Hgb Conc. 34.3 g/dL (32.0-36.0); Mean Corpuscular Volume 87.9 fL (80.0-100.0); Monocytes # (auto) 1.3 10 ^3/uL (0-1.3); Monocytes % (auto) 9.1 % (0.0-12.0); Neutrophils % (auto) 84.2 % (37.0-80.0); Platelet Count (auto) 355 10^3/uL (140-450); Red Blood Cells 4.65 10^6/uL (4.5-5.90); Red Cell Distribution Width 12.8 % (11.8-14.3); White Blood Cell 14.2 10^3/uL (4.4-10.8)
[2024-10-17 22:17] LABS: Alanine Aminotransferase 32 U/L (7-40); Albumin 4.2 g/dL (3.2-4.8); Alkaline Phosphatase 135 U/L (46-116); Anion Gap 6 (5-15); Aspartate Aminotransferase 23 U/L (13-40); BUN/Creatinine Ratio 8.8 (10.0-20.0); Blood Urea Nitrogen 8 mg/dL (9-23); Calcium 10.2 mg/dL (8.7-10.4); Carbon Dioxide 29 mmol/L (20-31); Chloride 101 mmol/L (98-107); Glucose 149 mg/dL (74-106); Lipase 37 U/L (12-53); Potassium 3.9 mmol/L (3.5-5.1); Sodium 136 mmol/L (136-145)
[2024-10-17 22:18] LABS: Bilirubin, Total 0.5 mg/dL (0.2-1.0); Total Protein 6.7 g/dL (5.7-8.2)
[2024-10-17 22:24] LABS: Urine Blood Negative /uL (Negative); Urine Clarity Clear (Clear); Urine Color Yellow (Yellow); Urine Protein, UAD TRACE (Negative); Urine Specific Gravity 1.018 (1.001-1.035); Urine Squamous Epithelial Cell None Seen /hpf (<5); Urine Urobilinogen 4 mg/dL (Negative); Urine WBC 1 /hpf (0 - 3); Urine pH 6.5 (5.0-9.0)
== END 2024-10-18 00:50 | disposition left against medical advice (07) ==
LOC: ER 21:02
DX: R10.31 Right lower quadrant pain (principal); Z88.0 Allergy status to penicillin; Z79.899 Other long term (current) drug therapy
CPT/HCPCS: 36415; 80053; 81001; 83690; 85025